=== PATIENT | male | born 1970 | race Caucasian/White ===

== ENCOUNTER 2018-10-09 10:47 | Emergency (ER) | payer OTHER ==
[~2018-10-09] VITALS: Ht 175.3 cm; Wt 83.0 kg
[~2018-10-09 10:47] MED LIST: ACET325 PO; ALBU.083IS IH; ALBU90OI6 INH; ALBU90OI61 INH; AZIT250 PO; FLUSAL1005 IH; FLUSAL5005 INH; HYDACE5 PO; Hydrocodone-Ap1 EA20 PO; LEVFLO500 PO; MONT10T PO; OMEPRAZOLE MAGN20 MG PO; PRED10 PO; PRED20 PO; Ventolin Soln3 ML INH
[2018-10-09 11:42] LABS: BASOPHILS ABSOLUTE AUTO 0.03 K/mm3 (0.00-0.23); BASOPHILS PERCENT AUTO 0 % (0-2); EOSINOPHILS ABSOLUTE AUTO 0.13 K/mm3 (0.00-0.68); EOSINOPHILS PERCENT AUTO 2 % (0-6); Hemoglobin 16.3 g/dL (13.5-17.5); IMMATURE GRAN ABSOLUTE AUTO 0.02 K/mm3 (0.00-0.10); IMMATURE GRAN PERCENT AUTO 0 % (0-1); LYMPHOCYTES ABSOLUTE AUTO 1.01 K/mm3 (0.84-5.20); LYMPHOCYTES PERCENT AUTO 13 % (21-46); MONOCYTES ABSOLUTE AUTO 0.29 K/mm3 (0.16-1.47); MONOCYTES PERCENT AUTO 4 % (4-13); Mean Corpuscular HGB 33.8 pg (26.0-34.0); Mean Corpuscular Volume 100 fL (80-100); NEUTROPHILS ABSOLUTE AUTO 6.42 K/mm3 (1.96-9.15); NEUTROPHILS PERCENT AUTO 81 % (41-73); Platelet Count 212 K/mm3 (150-400); RDW Coefficient Variation 12.7 % (11.7-14.2); RDW Standard Deviation 47.3 fL (35.1-46.3); Red Blood Cell Count 4.82 M/mm3 (4.30-5.90)
[2018-10-09 12:01] LABS: Alanine Aminotransfer (ALT/SGP 41 U/L (12-78); Albumin, Blood 3.7 g/dL (3.4-5.0); Alk Phos 62 U/L (50-136); Anion Gap 8 mmol/L (6-16); Aspartate Aminotrans (AST/SGOT 19 U/L (12-37); Bilirubin, Total 0.2 mg/dL (0.1-1.0); Blood Urea Nitrogen 11 mg/dL (8-24); Bun/Creatinine Ratio 14.6 (12.0-20.0); CO2, Blood 24 mmol/L (21-32); Calcium, Blood 8.3 mg/dL (8.5-10.1); Chloride, Blood 110 mmol/L (98-108); Creatinine, Blood 0.75 mg/dL (0.60-1.20); Globulin, Blood 3.6 g/dL (2.2-4.0); Glomerular Filtration Rate >60 (60-); Glucose, Blood 115 mg/dL (70-99); Potassium, Blood 4.1 mmol/L (3.5-5.5); Sodium, Blood 142 mmol/L (136-145); Total Protein, Blood 7.3 g/dL (6.4-8.2); Troponin I <0.015 ng/mL (0.000-0.040)
== END 2018-10-09 13:45 | disposition home or self-care (01) ==
LOC: ER 10:47
PROVIDERS: Emergency Medicine
DX: R55 Syncope and collapse (principal); R06.00 Dyspnea, unspecified; J45.909 Unspecified asthma, uncomplicated; F41.9 Anxiety disorder, unspecified; F17.200 Nicotine dependence, unspecified, uncomplicated; Z88.8 Allergy status to other drugs, medicaments and biological substances; Z79.899 Other long term (current) drug therapy; Z79.891 Long term (current) use of opiate analgesic
CPT/HCPCS: 36415; 71046; 80053; 84484; 85025; 85379; 93005; 93010; 99285-25

== ENCOUNTER 2021-05-02 04:49 | Inpatient (IN) | payer OTHER ==
[~2021-05-02] VITALS: Ht 177.8 cm; Wt 87.7 kg
[2021-05-02 05:35] LABS: Calcium, Ionized (POC) 1.13 mmol/L (1.10-1.46); Chloride (POC) 106 mmol/L (98-108); Creatinine (POC) 1.3 mg/dL (0.8-1.3); Glucose (ISTAT POC) 230 mg/dL (70-99); Potassium (POC) 5.1 mmol/L (3.5-5.5); Sodium (POC) 141 mmol/L (135-148); Total CO2 (POC) 21 mmol/L (21-32)
[2021-05-02 05:52] LABS: Alanine Aminotransfer (ALT/SGP 58 U/L (12-78); Albumin, Blood 3.3 g/dL (3.4-5.0); Albumin/Globulin Ratio 0.9 (0.8-1.8); Alk Phos 74 U/L (50-136); Anion Gap 13 mmol/L (6-16); Aspartate Aminotrans (AST/SGOT 56 U/L (12-37); Bilirubin, Total 0.2 mg/dL (0.1-1.0); Blood Urea Nitrogen 12 mg/dL (8-24); Bun/Creatinine Ratio 10.3 (12.0-20.0); CO2, Blood 21 mmol/L (21-32); Calcium, Blood 8.1 mg/dL (8.5-10.1); Chloride, Blood 108 mmol/L (98-108); Creatinine, Blood 1.17 mg/dL (0.60-1.20); Ethanol (Alcohol), Blood, Med 73 mg/dL; Globulin, Blood 3.5 g/dL (2.2-4.0); Glomerular Filtration Rate >60 (60-); Glucose, Blood 235 mg/dL (70-99); Potassium, Blood 4.4 mmol/L (3.5-5.5); Sodium, Blood 142 mmol/L (136-145); Total Protein, Blood 6.8 g/dL (6.4-8.2); Troponin I <0.015 ng/mL (0.000-0.040)
[2021-05-02 05:55] LABS: PCO2 Arterial 95.1 mmHg (35-45); PO2 Arterial 354 mmHg (80-100); pH Blood Arterial 7.01 (7.35-7.45)
[2021-05-02 05:56] LABS: BASOPHILS ABSOLUTE AUTO 0.07 K/mm3 (0.00-0.23); BASOPHILS PERCENT AUTO 1 % (0-2); EOSINOPHILS PERCENT AUTO 3 % (0-6); Hemoglobin 15.8 g/dL (13.5-17.5); IMMATURE GRAN ABSOLUTE AUTO 0.37 K/mm3 (0.00-0.10); IMMATURE GRAN PERCENT AUTO 5 % (0-1); LYMPHOCYTES ABSOLUTE AUTO 2.92 K/mm3 (0.84-5.20); LYMPHOCYTES PERCENT AUTO 39 % (21-46); MONOCYTES ABSOLUTE AUTO 0.19 K/mm3 (0.16-1.47); MONOCYTES PERCENT AUTO 3 % (4-13); Mean Corpuscular HGB 33.7 pg (26.0-34.0); Mean Corpuscular HGB Conc 32.2 g/dL (31.5-36.5); Mean Corpuscular Volume 105 fL (80-100); Mean Platelet Volume 9.4 fL (9.1-12.4); NEUTROPHILS PERCENT AUTO 50 % (41-73); Platelet Count 225 K/mm3 (150-400); RDW Coefficient Variation 12.8 % (11.7-14.2); RDW Standard Deviation 49.8 fL (35.1-46.3); Red Blood Cell Count 4.69 M/mm3 (4.30-5.90); White Blood Cell Count 7.55 K/mm3 (4.00-11.30)
[2021-05-02 06:37] LABS: Source, Urine Catheter
[2021-05-02 06:53] LABS: Appearance, Urine Clear (Clear); Bilirubin, Urine Neg (Neg); Blood, Urine 3+ (Neg); Color, Urine Yellow (P-Yellow); Glucose Qualitative, Urine 3+ (Neg); Ketones, Urine Neg (Neg); Leukocyte Esterase, Urine Neg (Neg); Nitrite, Urine Neg (Neg); Protein, Urine 3+ (Neg); Urobilinogen, Urine NORM (Normal)
[2021-05-02 06:54] LABS: SARS-Cov-2 (COVID-19) PCR, MMC NEGATIVE (NEGATIVE)
[2021-05-02 07:10] LABS: U Amphetamine Screen Not Detected; U Barbituate Screen Not Detected; U Benzodiazapine Screen Not Detected; U Cocaine Screen Not Detected; U Methadone Screen Not Detected; U Methamphetamine Screen Not Detected
[2021-05-02 07:11] LABS: U Buprenorphine Screen Not Detected; U Cannabinoids Screen Not Detected; U Opiates Screen DETECTED; U Oxycodone Screen Not Detected; U Phencyclidine Screen Not Detected; U Propoxyphene Screen Not Detected
[2021-05-02 07:13] LABS: Amorphous Light (0-Heavy); Bacteria Few /hpf; Squamous Epithelial Cells Few /hpf (Few)
[2021-05-02 07:17] LABS: International Normalized Ratio 0.98; Prothrombin Time Results 10.6 Sec (9.7-11.5)
--- NOTE | 2021-05-02 07:30 | NUR ---
ASSUMED PT CARE FROM ED RN AT 0605 PT ARRIVED INTUBATED AND SEDATED WITH PROPOFOL AT 30MCG/KG/MIN. PT NON-RESPONSIVE AT THIS TIME; HOWEVER, NOTED TO BE HAVING RHYTHMIC JERKING MOVEMENTS WITH SIMULTANEOUS EYES OPENING/JERKING THAT APPEAR TO BE SEIZURE LIKE ACTIVITY. PUPILS 2MM AND NON-REACTIVE TO LIGHT. PT MEDICATED WITH 2MG OF ATIVAN PER ORDERS. VENT SETTINGS: PC 35/8; FIO2 50%, RR 20, SPO2 >90%. LUNG SOUNDS NOTED TO BE TIGHT/WHEEZY AND COURSE T/O ALL LOBES; NON-PRODUCTIVE COUGH. SINUS TACHYCARDIA WITH HR 110-120'S. BOUNDING PULSES NOTED X4 EXTREMITIES. PT RECEIVING 2L OF NS WO VIA CENTRAL LINE TO RIGHT IJ. ZOSYN AND VANCO ALSO INFUSING. PT RECEIVED AN AMP OF BICARB UPON ARRIVAL D/T CRITICAL ABG RESULTS. BOWEL TONES NOTED TO BE ABSENT; HOWEVER, UPON TURNING PT TO REMOVE LINEN, COPIOUS AMOUNTS OF LIQUID YELLOW/LYNCH STOOL NOTED. THEREFORE, PLACED RECTAL TUBE. 18 FR TEMP RAZO CATHETER ALSO PLACED UPON ARRIVAL WITH MODERATE AMOUNTS OF CLEAR, YELLOW URINE DRAINING TO GRAVITY; TEMP NOTED TO BE 94. DR. ELIZONDO CALLED IN REGARDS TO TEMPERATURE MANAGEMENT WITH ORDERS TO PROVIDE WARM BLANKETS AND SLOWLY REWARM. NO ORDERS FOR COOLING. FAMILY WAITING IN WAITING ROOM WITH UPDATE GIVEN FROM ASSET RECOVERY SPECIALIST. REPORT HANDED OFF TO CONSTANTINO GONZALEZ.
[2021-05-02] MEDS ORDERED: FLUT1DIS2 INH (07:59)
[2021-05-02] MEDS ORDERED: ALBU90OI6 INH (08:00)
--- NOTE | 2021-05-02 08:42 | NUR ---
ASSUMED CARE REPORT RECEIVED FROM CONSTANTINO GARCÍA. PT INTUBATED, HAVING RHYTHMIC MUCLE SPASMS THAT APPEAR TO BE SEIZURE LIKE ACTIVITY. SEDATION STARTED AND ATIVAN GIVEN AND SPASMING EASED. PT STILL HAS SOME SPASMS WITH STIMULUS WHERE HIS BODY SPASMS AND HIS EYES BURST OPEN BRIEFLY, BUT EYE OPENING DOES NOT APPEAR PURPOSEFUL. LUNGS ARE VERY TIGHT AND WHEEZY. SPOKE WITH RT ANGELES AND SHE GAVE BREATHING TREATMENT. BOWEL TONES VERY HYPOACTIVE, RECTAL TUBE WITH SMALL AMT OF LIQUID STOOL IN THE TUBING. RAZO DRAINING. PT IS HYPOTHERMIC AT 94.2F. WARM BLANKETS APPLIED. SPOKE WITH DR. TAPIA AND PROVIDED UPDATE. RECEIVED ORDER TO STOP LR AND CONTINUE WITH JUST WARM BLANKETS FOR NOW. SPOKE WITH PT'S AND DAUGHTER AND PROVIDED UPDATE ON PT STATUS WELL OBTAINED PT HISTORY. PT'S TOLD CONSTANTINO ALLEN THAT SHE DID NOT DO CPR WHILE WAITING FOR AN AMBULANCE. CONTINUING TO MONITOR AND PROVIDE FAMILY WITH UPDATES THEY DON'T WANT TO COME BACK TO THE ROOM RIGHT NOW AND SEE PT IN THIS STATE.
[2021-05-02] MEDS ORDERED: Norco 10-325 T1 EACH PO (10:46)
[2021-05-02] MEDS ORDERED: OMEP20ER PO (10:50)
[2021-05-02] MEDS ORDERED: ATOR10 PO (10:50)
[2021-05-02] MEDS ORDERED: FLUT1DIS8 INH (10:51)
[2021-05-02] MEDS ORDERED: GABA300 PO (10:52)
[2021-05-02] MEDS ORDERED: DEPO-TESTO200 MG/1 M IM (10:53)
--- NOTE | 2021-05-02 11:56 | NUR ---
REASSESSMENT PT REMAINS INTUBATED AND SEDATED. STILL HAVING PERIODIC FULL BODY MUSCLE JERK, BUT MUCH LESS THAN WHEN HE WAS NOT SEDATED. IV KEPPRA STARTED PER DR. TAPIA. LUNGS ARE STILL TIGHT, BUT HAVE IMPROVED AIR MOVEMENT THAN THIS MORNING. SMALL TO MODERATE AMT OF CLEAR TO WHITE SPUTUM BEING SUCTIONED. REMAINS ST IN THE LOW 100S. BP STABLE. BOWEL TONES REMAIN HYPOACTIVE. RAZO DRAINING CL YELLOW URINE. DR. TAPIA SPOKE WITH PT'S ANDRAE AND PROVIDING UPDATE. PT'S ANDRAE CAME BACK AND SAW PT. PT'S MED LIST UPDATED FROM MED LIST FROM PHARMACY. CONTINUING TO MONITOR.
[2021-05-02 13:10] LABS: Base Excess Venous -5.1 mmol/L; Bicarbonate Venous 20.5 mmol/L (24.0-30.0); PCO2 Venous 40.5 mmHg (38-42); PO2 Venous 99.5 mmHg (38-42); pH Blood Venous 7.32 (7.34-7.37)
--- NOTE | 2021-05-02 16:11 | NUR ---
PT'S WEDDING BAND SENT HOME WITH HIS .
--- NOTE | 2021-05-02 16:58 | NUR ---
SHIFT SUMMARY PT'S LUNGS WERE SOUNDING BETTER THROUGHOUT THE SHIFT THEN THIS EVENING THEY HAVE RETURNED TO BEING QUITE TIGHT AND PT HAS GOT TACHYPNEIC. HE WAS HAVING VERY RHYTHMIC EYE OPENING AND CLOSING THAT APPEARED SEIZURE LIKE AND PT WAS NOT BREATHIGN WELLW ITH THE VENT. SEDATION INCREASED, PRN ATIVANA ND FENTANYL GIVEN WITH OUT IMPROVEMENT. DR. TAPIA TO THE BEDSIDE AND ORDERED FOR 4MG ATIVAN TO BE GIVEN AND THE RHYTHMIC EYE OPENING STOPPED AFTER THAT BUT PT IS STILL TACHYPNEIC AND LUNG SOUNDS ARE TIGHT. WAITING FOR PHENYTOIN TO ARRIVE FROM PHARMACY. PT HAS COOLING BLANKET ON AND ICE PACKS AROUND BODY TO KEEP PT AFEBRILE BODY TEMPERATURE STARTED TO CLIMB THIS AFTERNOON. ST IN LOW 100S STILL AND BP REMAINS STABLE. GOOD URINE OUTPUT. SCANT OUTPUT FROM RECTAL TUBE. BOWEL TONES HYPOACTIVE.PT'S DID COME TO THE BEDSIDE THIS EVENING. ALL QUESTIONS ANSWERED AND UPDATE GIVEN. CONTINUING TO MONITOR.
--- NOTE | 2021-05-02 18:26 | NUR ---
HYPOTENSION AFTER PHENYTOIN STARTED PT'S SBP DROPPED TO THE 80S, MAP IN THE 50S. PT'S RESPIRATORY RATE FINALLY SLOWED AND EVENED OUT WHEN THE PHENYTOIN STARTED WELL. PROPOFOL DECREASED BUT BP REMAINED LOW. DR. TAPIA NOTIFIED AND ORDER RECEIVED TO START LEVOPHED. STARTED AT 4 MCG/MIN AND BP RESPONDED RIGHT AWAY. CONTINUE TO MONITOR AND TITRATE LEVOPHED NEEDED.
--- NOTE | 2021-05-02 22:15 | NUR ---
ASSUMED PT CARE FROM CONSTANTINO GONZALEZ AT 1915 PT REMAINS INTUBATED AND SEDATED. PROPOFOL AT 50MCG/KG/MIN VIA CENTRAL LINE TO RIGHT IJ. LEVOPHED AT 4MCG/MIN WITH SBP 130'S; THEREFORE, PLACED ON STANDBY. VENT SETTINGS: AC/PC 22/5; FIO2 30%, RR 20, SPO2 >90%. PT HAS OCCASIONAL, NON-PRODUCTIVE COUGH. LUNG SOUNDS ARE TIGHT WITH WHEEZING NOTED DURING COUGHING EPISODES; HOWEVER, AFTER BEING MEDICATED WITH ADJUNCT SEDATION LUNG SOUNDS BECOME CLEAR/DIMINISHED T/O. PT IS UNRESPONSIVE WITH NO PURPOSEFUL MOVEMENTS OR REFLEXES NOTED. NEGATIVE DOLLS EYES. RESTRAINTS REMOVED AT 2129. SINUS TACHYCARDIA WITH HR 100-110'S. ABDOMEN IS MODERATELY DISTENDED AND FIRM WITH HYPOACTIVE TONES; RECTAL TUBE IN PLACE DRAINING MINIMAL AMOUNTS OF YELLOW/LYNCH STOOL. OG HOOKED TO LIS WITH BROWN OUTPUT NOTED. TEMP RAZO IS PATENT AND DRAINING DARK MILI COLORED URINE TO GRAVITY; TEMP 98.6 WITH GOAL TO MAINTAIN TEMP AT 36.5 CELSIUS PER REPORT. COOLING BLANKETS AND ICE PACKS REMAIN ON PT AT THIS TIME. SEE SHIFT SUMMARY FOR FURTHER DETAILS.
--- NOTE | 2021-05-03 01:36 | NUR ---
BROTHER ARRIVED FROM [place] AT BEDSIDE NOW ASKING APPROPRIATE QUESTIONS REGARDING OUTCOMES IN RELATION TO SITUATION. EDUCATED REGARDING NEURO STATUS AND UPCOMING EEG TO FURTHER DETERMINE NEURO OUTCOMES. BROTHER ABLE TO VERBALIZE UNDERSTANDING. HE REMAINS VERY CALM AND APPROPRIATE. WILL REMAIN AVAILABLE FOR FURTHER QUESTIONS AND SUPPORT.
[2021-05-03 04:24] LABS: BASOPHILS ABSOLUTE AUTO 0.02 K/mm3 (0.00-0.23); BASOPHILS PERCENT AUTO 0 % (0-2); EOSINOPHILS PERCENT AUTO 0 % (0-6); Hematocrit 43.2 % (37.0-53.0); Hemoglobin 14.6 g/dL (13.5-17.5); IMMATURE GRAN ABSOLUTE AUTO 0.06 K/mm3 (0.00-0.10); IMMATURE GRAN PERCENT AUTO 0 % (0-1); LYMPHOCYTES ABSOLUTE AUTO 0.59 K/mm3 (0.84-5.20); LYMPHOCYTES PERCENT AUTO 4 % (21-46); MONOCYTES ABSOLUTE AUTO 0.57 K/mm3 (0.16-1.47); MONOCYTES PERCENT AUTO 4 % (4-13); Mean Corpuscular HGB Conc 33.8 g/dL (31.5-36.5); Mean Corpuscular Volume 101 fL (80-100); Mean Platelet Volume 9.7 fL (9.1-12.4); NEUTROPHILS PERCENT AUTO 91 % (41-73); Platelet Count 179 K/mm3 (150-400); RDW Coefficient Variation 13.5 % (11.7-14.2); RDW Standard Deviation 50.4 fL (35.1-46.3); Red Blood Cell Count 4.29 M/mm3 (4.30-5.90); White Blood Cell Count 14.24 K/mm3 (4.00-11.30)
[2021-05-03 04:46] LABS: Alanine Aminotransfer (ALT/SGP 48 U/L (12-78); Albumin, Blood 3.3 g/dL (3.4-5.0); Albumin/Globulin Ratio 1.1 (0.8-1.8); Alk Phos 59 U/L (50-136); Anion Gap 8 mmol/L (6-16); Aspartate Aminotrans (AST/SGOT 49 U/L (12-37); Bilirubin, Total 0.2 mg/dL (0.1-1.0); Blood Urea Nitrogen 17 mg/dL (8-24); Bun/Creatinine Ratio 21.5 (12.0-20.0); CO2, Blood 23 mmol/L (21-32); Calcium, Blood 7.6 mg/dL (8.5-10.1); Chloride, Blood 112 mmol/L (98-108); Creatinine, Blood 0.79 mg/dL (0.60-1.20); Globulin, Blood 3.1 g/dL (2.2-4.0); Glomerular Filtration Rate >60 (60-); Glucose, Blood 199 mg/dL (70-99); Potassium, Blood 3.6 mmol/L (3.5-5.5); Sodium, Blood 143 mmol/L (136-145); Total Protein, Blood 6.4 g/dL (6.4-8.2)
--- NOTE | 2021-05-03 05:05 | NUR ---
END OF SHIFT SUMMARY NO SIGNIFICANT CHANGES THIS SHIFT. VENT SETTINGS REMAIN UNCHANGED. PROPOFOL REMAINS AT 50MCG/KG/MIN. NO SEDATION VACATION PERFORMED D/T RESP RATE INCREASING TO 40-50'S WHEN PROPOFOL WAS OFF FOR 2 MINUTES DURING LAB DRAW. PT CONTINUES TO HAVE RHYTHMIC EYE MOVEMENTS AND OCCASIONAL JERKING MOVEMENTS. MEDICATED WITH ATIVAN AND FENTANYL FOR ADJUNCT SEDATION. NO PURPOSEFUL MOVEMENTS OR REFLEXES NOTED; THEREFORE, PT REMAINS OUT OF RESTRAINTS. NEGATIVE DOLLS EYES. NO POSTURING NOTED. LUNG SOUNDS ARE CLEAR T/O DIM TO BASES WHEN RELAXED; HOWEVER, OCCASIONAL COUGHING EPISODES AND/OR TACHYPNEA CAUSES TIGHT WHEEZING NOTED T/O. SINUS TACHYCARDIA WITH HR 100-110'S. LEVOPHED HAS BEEN ON AND OFF T/O SHIFT; CURRENTLY OFF. TEMPERATURE HAS BEEN AROUND 97 MOST OF SHIFT WITH COOLING BLANKET IN PLACE. SKIN IS VERY DIAPHORETIC WITH FOUL ORAL ODOR DESPITE ORAL CARES. RECTAL TUBE PATENT AND DRAINING TO GRAVITY. WILL CONTINUE TO MONITOR UNTIL REPORT IS HANDED OFF TO ONCOMING RN.
--- NOTE | 2021-05-03 12:04 | NUR ---
REASSESSMENT PT CONTINUES TO BE SEDATED AND INTUBATED. SLUGGISH PUPILLARY REFLEX, WEAK GAG THAT IS DIFFICULT TO ASSESS BECAUSE PT GOES INTO A COUGHING FIT WHEN TRYING TO STIMULATE IT. LUNGS ARE TIGHT, BUT MOVING MORE AIR THAT YESTERDAY. ST INT HE LOW 100S. BPS TABLE SO ABLE TO TITRATE LEVOPHED OFF THIS MORNING. HYPOACTIVE BOWEL TONES, RECTAL TUBE WITH MININMAL OUTPUT. PT'S BROTHER CAME IN TODAY AND WAS UPDATED. YOUTUBER IN THE ROOM SETTING UP. CONTINUE TO MONITOR.
--- NOTE | 2021-05-03 17:07 | NUR ---
SHIFT SUMMARY PT REMAINS INTUBATED AND SEDATED THIS SHIFT. SEDATION WAS TURNED OFF DURING THE EEG AND PT HAD MINIMAL RESPONSIVENESS DURING THAT TIME. WITH PAINFUL STIMULI PT SHOWED DECERBRATE TYPE POSTURING ON THE R SIDE. SEDATION TURNED BACK ON PER DR. TAPIA. WEAK GAG THAT IS DIFFICULT TO STIMULATE, PUPILS REMAIN SLUGGISH, 2MM. LUNGS DIM, TIGHT. ST, BP STABLE. DARK YELLOW URINE IN RAZO. SCANT OUTPUT FROM RECTAL TUBE. MULTIPLE FAMILY MEMBERS AND FRIENDS IN TO VISIT THROUGHOUT THE DAY. CONTINUING TO MONITOR.
--- NOTE | 2021-05-03 19:40 | NUR ---
ASSUMED PT CARE FROM CONSTANTINO GONZALEZ AT 1915 PT REMAINS INTUBATED AND SEDATED. PROPOFOL AT 40MCG/KG/MIN. VENT REMAINS AC/PC 22/5; FIO2 30%, RR 20, SPO2 >90%. PT IS NONRESPONSIVE. NEGATIVE DOLLS EYES. PUPILS 2MM A NON-REACTIVE TO LIGHT. OCCASIONAL COUGHING EPISODES WITH RR INCREASING TO 40-50'S. POSITIVE GAG. NO POSTURING NOTED. NO REFLEXES NOTED WHEN STIMULATING PLANTAR REFLEX. OG TO LIS WITH DARK BROWN OUTPUT NOTED. TEMP RAZO IS PATENT AND DRAINING GREEN/YELLOW URINE TO GRAVITY; TEMP 97.7. RECTAL TUBE REMAINS IN PLACE WITH MINIMAL OUTPUT. SINUS TACHYCARDIA WITH HR 100-110'S; BP'S STABLE, SEE FLOWSHEET. FAMILY AT BEDSIDE UPON ASSUMPTION OF CARE IN WHICH THEY WERE GIVEN EEG PER EEG REPORT. HAD QUESTIONS ABOUT SEDATION AND WHY IT WAS PLACED BACK ON; INFORMED , PER WHAT I RECEIVED IN REPORT, THAT IT WAS TO KEEP PT COMFORTABLE IN CASE HE WAS TO HAVE SEIZURE LIKE ACTIVITY DURING THE NIGHT. ASKED TO SPEAK TO OFF GOING RN TO CLARIFY IN WHICH SHE WAS GIVEN THE SAME RESPONSE. HAD QUESTIONS ABOUT CONTINUED JERKING MOVEMENTS DESPITE EEG SHOWING NO SEIZURE LIKE ACTIVITY; EDUCATED REGARDING MUSCLE JERKING DOESN'T ALWAYS MEAN BRAIN ACTIVITY IS PRESENT. UPDATED ON PLAN OF TURNING OFF SEDATION TOMORROW AND SEEING IF THERE IS ANY CHANGE IN PT'S NEURO STATUS. AGREED WITH PLAN OF CARE AND ASKED THAT SHE BE HERE WHEN THAT TAKES PLACE. INFORMED THAT WE WOULD TRY OUR BEST TO MAKE THAT HAPPEN, BUT ALSO ASKED THAT SHE INFORM OTHER FRIENDS AND FAMILY THAT ONLY TWO PEOPLE WOULD BE ALLOWED BACK DURING THAT TIME. DEMONSTRATED UNDERSTANDING AND BOTH HER AND HER DAUGHTER LEFT SHORTLY THEREAFTER.
[2021-05-04 03:46] LABS: BASOPHILS ABSOLUTE AUTO 0.02 K/mm3 (0.00-0.23); BASOPHILS PERCENT AUTO 0 % (0-2); EOSINOPHILS PERCENT AUTO 0 % (0-6); Hematocrit 43.1 % (37.0-53.0); Hemoglobin 14.3 g/dL (13.5-17.5); IMMATURE GRAN ABSOLUTE AUTO 0.08 K/mm3 (0.00-0.10); IMMATURE GRAN PERCENT AUTO 1 % (0-1); LYMPHOCYTES ABSOLUTE AUTO 0.77 K/mm3 (0.84-5.20); LYMPHOCYTES PERCENT AUTO 5 % (21-46); MONOCYTES ABSOLUTE AUTO 0.78 K/mm3 (0.16-1.47); MONOCYTES PERCENT AUTO 5 % (4-13); Mean Corpuscular HGB 33.8 pg (26.0-34.0); Mean Corpuscular HGB Conc 33.2 g/dL (31.5-36.5); Mean Corpuscular Volume 102 fL (80-100); Mean Platelet Volume 9.7 fL (9.1-12.4); NEUTROPHILS ABSOLUTE AUTO 13.88 K/mm3 (1.96-9.15); NEUTROPHILS PERCENT AUTO 89 % (41-73); Platelet Count 178 K/mm3 (150-400); RDW Standard Deviation 52.9 fL (35.1-46.3); Red Blood Cell Count 4.23 M/mm3 (4.30-5.90); White Blood Cell Count 15.53 K/mm3 (4.00-11.30)
[2021-05-04 04:01] LABS: Anion Gap 4 mmol/L (6-16); Blood Urea Nitrogen 18 mg/dL (8-24); Bun/Creatinine Ratio 25.8 (12.0-20.0); CO2, Blood 27 mmol/L (21-32); Calcium, Blood 7.7 mg/dL (8.5-10.1); Chloride, Blood 111 mmol/L (98-108); Glomerular Filtration Rate >60 (60-); Glucose, Blood 133 mg/dL (70-99); Potassium, Blood 3.7 mmol/L (3.5-5.5); Sodium, Blood 142 mmol/L (136-145)
--- NOTE | 2021-05-04 06:01 | NUR ---
END OF SHIFT SUMMARY NO SIGNIFICANT CHANGES THIS SHIFT. VENT SETTINGS REMAIN UNCHANGED. PROPOFOL REMAINS AT 40MCG/KG/MIN. UNRESPONSIVE WITH NO PURPOSEFUL MOVEMENTS; THEREFORE, PT REMAINS OUT OF RESTRAINTS. PUPILS 3MM AND VERY SLUGGISH REACTION TO LIGHT. NEGATIVE DOLLS EYES. NEGATIVE PLANTAR REFLEX. NO POSTURING NOTED THIS SHIFT. PT REMAINS VERY DIAPHORETIC AND FLUSHED. TEMP REMAINS 97-98 PER TEMP RAZO PROBE. GOOSEBUMPS NOTED TO CHEST AND ARMS, BUT NO SHIVERING. OCCASIONAL PERIODS OF TACHYPNEA LABORED/SHALLOW BREATHING; RATE NOTED TO INCREASE TO 40-50. DURING THIS TIME LUNGS BECOME VERY TIGHT AND WHEEZY WITH MINIMAL AIR MOVEMENT NOTED T/O. AFTER PT RECOVERS LUNG SOUNDS TEND TO RECOVER BACK TO CLEAR AND DIMINISHED TO BASES. NSR TO SINUS TACH; HR 90-110'S, BP'S STABLE. NO JERKING/RHYTHMIC MOVEMENTS NOTED THIS SHIFT. REMOVED RECTAL TUBE THIS MORNING D/T NO OUTPUT THIS SHIFT. CT CALLED TO ARRANGE TIME OF TRANSPORT DOWN TO IMAGING; HOWEVER, [employer] SUPER[employer]OR WAS REQUESTING TO GO AROUND 0600 IN WHICH RT WOULD NOT BE AVAILABLE AT THIS TIME SECONDARY TO THEIR SHIFT REPORT. ARRANGED THAT TRANSPORT TO CT MAY BE BETTER AFTER NURSES GIVE THEIR MORNING REPORT IN WHICH [employer] SUPERVISOR STATED HE WOULD CALL BACK AND CONFIRM TIME AFTER 0700. WILL CONTINUE TO MONITOR UNTIL REPORT IS HANDED OFF TO ONCOMING RN.
--- NOTE | 2021-05-04 10:03 | NUR ---
SEDATION VACATION SEDATION TURNED OFF AFTER PT RETURNED FROM HEAD CT AND DR. SWANN ASSESSED PT AT THE BEDSIDE. PT'S RESPIRATORY RATE WENT UP TO THE 50S AND VOLUMES DECREASED. DR. SWANN SWITCHED PT ON THE VENTILATOR TO ASSESS INTRINSIC RATE AND RATE WAS IN THE 60S WITH VOLUMES ONLY ABOUT 150ML. DR. SWANN GAVE ORDER TO TURN SEDTAION BACK ON. HEAD CT RESULTS CAME BACK SHOWING CEREBRAL EDEMA, DR. SWANN AWARE. PT'S NOTIFIED TO COME IN AND ASKED HER TO HAVE PT'S DAUGHTER AND BROTHER COME WELL IN ORDER TO TALK WITH THE DOCTOR. PNTB NOTIFIED OF HEAD CT RESULTS.
--- NOTE | 2021-05-04 12:17 | NUR ---
REASSESSMENT PT REMAINS INTUBATED AND SEDATED. HE CONTINUES TO HAVE NO PURPOSEFUL MOVEMENT. ATTEMPTED TO TEST GAG REFLEX AND PT STARTED HAVING A COUGHING FIT. STILL WITH DECEREBRATE TYPE POSTURING OF HIS ARMS WITH PAINFUL STIMULI. LUNGS ARE CLEAR, BUT TIGHT. SR INTHE 90S, BP STABLE. RAZO WITH DARK, TEA COLORED URINE. DR. SWANN AND THIS RN HAD FAMILY MEETING TO DISCUSS HEAD CT RESULTS. PT'S , LYNSEY, REQUESTED A NEUROLOGY CONSULT SO DR. SWANN SPOKE TO WHO SAID HE CAN SEE PT ABOUT 1830OR 193 TONIGHT. PT'S FAMILY IS AWARE OF WHEN WILL BE HERE. AFTER FAMILY MEETING, PT'S HAD SEVERAL QUESTIONS ABOUT CARE AND PROGNOSIS. MORE THAN 20 MINTUES SPENT DISCUSSING THIS WITH THEM. PT'S KEEPS SAYING SHE DOESN'T WANT TO GIVE UP AND WAS ASKING ABOUT BRAIN SURGERY EVEN. PATHOPYSIOLOGY OF ANOXIC BRAIN INJURIES EXPLAINED EXTENSIVELY TO HER. PT'S ASKED ABOUT TRANSFERRING PT AFTER SEES HIM. EXPLAINED THAT WE HAVE NO PROBLEM TRYING, BUT ALSO EXPLAINED THAT INSURANCE MAY NOT PAY FOR IT, THAT A DOCTORHAS TO ACCEPT THE PATIENT AND THAT THERE HAS TO BE A BED AVAILABLE, WHICH HAS BEEN VERY DIFFICULT TO FIND LATELY. WILL REASSESS THEIR DESIRE FOR TRANSFER AFTER NEUROLOGY CONSULT.
--- NOTE | 2021-05-04 17:09 | NUR ---
SHIFT SUMMARY PT REMAINS INTUBATED AND SEDATED. STILL WITH ONLY SLIGHT PUPILLARY RELFEX. DECEREBRATE TYPE POSTURING WITH ORAL CARE. LUNGS CLEAR. SR, BP STABLE. TEMPERATURE 99-100.0F THROUGHOUT THE SHIFT, ICE PACKS IN PLACE. RAZO WITH DARK TEA/GREEN URINE. MULTIPLE CONVERSATIONS HAD WITH PT'S THROUGHOUT THE SHIFT REGARDING PT'S CARE AND PROGNOSIS. CONTINUING TO PROVIDE THEM WITH SUPPORT AND EDUCATION.
--- NOTE | 2021-05-04 19:00 | NUR ---
ASSUMED CARE ASSUMED CARE OF PATIENT. REMAINS INTUBATED- AC 20, PC 22, PEEP 5, FIO2 30%. RR 20s. SEDATED WITH PROPOFOL AT 40MCG/KG/MIN. PT IS UNRESPONSIVE. DECEREBRATE POSTURING NOTED WITH NOXIOUS STIMULI. NO SPONTANEOUS MOVEMENT. MONITOR SHOWS NSR, RATE 80s. BP STABLE. TEMP 99.5F PER RAZO TEMP PROBE. OG TO LIS WITH SCANT REDDISH-BROWN DRAINAGE. RAZO PATENT, DRAINING DARK TEA-COLORED URINE. RIJ LINE PATENT, DRSG C/D/I. SEE SHIFT ASSESSMENT.
--- NOTE | 2021-05-04 19:55 | NUR ---
SEDATION SEDATION TITRATED OFF FOR TO ASSESS PATIENT. PROPOFOL WAS OFF FROM 1934 TO 1954. RR INCREASED TO 40s-50s DURING THAT TIME. NO SPONTANEOUS/PURPOSEFUL MOVEMENT NOTED. CONTINUES WITH DECEREBRATE POSTURING WITH NOXIOUS STIMULI. SEDATION RESTARTED AT 40MCG/KG/MIN AT THIS TIME.
--- NOTE | 2021-05-04 20:30 | NUR ---
FAMILY UPDATE/TREATMENT PLAN MET WITH FAMILY- PLAN IS TO CONTINUE CURRENT TREATMENT FOR A TOTAL OF SEVEN DAYS AND THEN REASSESS.
[2021-05-05 04:30] LABS: BASOPHILS ABSOLUTE AUTO 0.02 K/mm3 (0.00-0.23); BASOPHILS PERCENT AUTO 0 % (0-2); EOSINOPHILS PERCENT AUTO 0 % (0-6); Hematocrit 42.2 % (37.0-53.0); Hemoglobin 13.9 g/dL (13.5-17.5); IMMATURE GRAN ABSOLUTE AUTO 0.11 K/mm3 (0.00-0.10); IMMATURE GRAN PERCENT AUTO 1 % (0-1); LYMPHOCYTES ABSOLUTE AUTO 1.32 K/mm3 (0.84-5.20); LYMPHOCYTES PERCENT AUTO 11 % (21-46); MONOCYTES ABSOLUTE AUTO 0.76 K/mm3 (0.16-1.47); MONOCYTES PERCENT AUTO 6 % (4-13); Mean Corpuscular HGB 33.8 pg (26.0-34.0); Mean Corpuscular HGB Conc 32.9 g/dL (31.5-36.5); Mean Corpuscular Volume 103 fL (80-100); Mean Platelet Volume 9.3 fL (9.1-12.4); NEUTROPHILS ABSOLUTE AUTO 9.68 K/mm3 (1.96-9.15); NEUTROPHILS PERCENT AUTO 81 % (41-73); Platelet Count 173 K/mm3 (150-400); RDW Coefficient Variation 13.8 % (11.7-14.2); RDW Standard Deviation 52.7 fL (35.1-46.3); Red Blood Cell Count 4.11 M/mm3 (4.30-5.90); White Blood Cell Count 11.89 K/mm3 (4.00-11.30)
[2021-05-05 04:47] LABS: Anion Gap 5 mmol/L (6-16); Blood Urea Nitrogen 20 mg/dL (8-24); Bun/Creatinine Ratio 31.5 (12.0-20.0); CO2, Blood 24 mmol/L (21-32); Chloride, Blood 112 mmol/L (98-108); Creatinine, Blood 0.63 mg/dL (0.60-1.20); Glomerular Filtration Rate >60 (60-); Glucose, Blood 109 mg/dL (70-99); Potassium, Blood 3.7 mmol/L (3.5-5.5); Sodium, Blood 141 mmol/L (136-145)
--- NOTE | 2021-05-05 06:21 | NUR ---
SHIFT SUMMARY NO ACUTE CHANGES. REMAINS INTUBATED WITH SAME VENT SETTINGS. RR 20s-50s DURING SHIFT. SEDATED WITH PROPOFOL AT 40MCG/KG/MIN. REMAINS UNRESPONSIVE. NO SPONTANEOUS OR PURPOSEFUL MOVEMENTS NOTED. DECEREBRATE POSTURING NOTED IN UPPER EXTREMITIES WITH NOXIOUS STIMULI. MEDICATED WITH FENTANYL 50MCG IV X 1 DOSE FOR INCREASED TACHYPNEA. NO SEIZURE ACTIVITY NOTED. MONITOR SHOWS SR-ST, RATE 90s-100s. BP STABLE. TMAX 99.6F. OG TO LIS- 150CC REDDISH-BROWN DRAINAGE WITH SOME COFFEE GROUND MATERIAL. RAZO PATENT AND DRAINING DARK GREENISH-BROWN URINE. RIJ PATENT. WILL REPORT TO ONCOMING RN WHEN AVAILABLE.
--- NOTE | 2021-05-05 08:47 | NUR ---
ASSUMED CARE BEDSIDE REPORT FROM JOEL MEEKS AT 0700. PT INTUBATED AND SEDATED. VENT SETTINGS AC/PC 20/22/5/30%. PROPOFOL GTT AT 40 MCG/KG/MIN. PT c NO COUGH/GAG/SWALLOW REFLEX. NO CORNEAL REFLEX. PUPILS 4 MM, NON REACTIVE. DECEREBRATE POSTURING c ORAL CARE. DOES NOT WITHDRAW EXTREMITIES TO PAINFUL STIMULI. NO SEIZURE ACTIVITY NOTED. RR 25-35. LUNGS COARSE THROUGHOUT. THIN CLEAR SECRETIONS. SR, RATE 100 ON MONITOR. BP STABLE. PT FLUSHED, WARM. TEMP 99.0. ABD ROUND, DISTENDED. BT X 4. OGT TO LIS, BROWN/COFFEE GROUND EMESIS OUT. RAZO PATENT, DRAINING MILI URINE TO GRAVITY. WILL CONTINUE TO MONITOR.
--- NOTE | 2021-05-05 14:41 | NUR ---
Met pt. still on vent prayed for him
--- NOTE | 2021-05-05 17:07 | NUR ---
SHIFT SUMMARY PT REMAINS INTUBATED AND SEDATED. VENT SETTINGS UNCHANGED, AC/PC 20/22/30%/5. LUNGS COARSE, SPUTUM SENT TO LAB. PROPOFOL GTT AT 40 MCG/KG/MIN. NEURO EXAM UNCHANGED, ONLY NEURO RESPONSE DECEREBRATE TO ORAL CARE. TUBE FEEDS STARTED THIS SHIFT, AT GOAL OF 20 ML/HR c 30 ML FLUSHES q4 HR. RAZO PATENT, DRAINING TEA COLORED URINE TO GRAVITY. VSS. FAMILY AT BEDSIDE THIS AFTERNOON. QUESTIONS ANSWERED. WILL CONTINUE TO MONITOR UNTIL REPORT TO ONCOMING NURSE.
--- NOTE | 2021-05-05 19:00 | NUR ---
ASSUMED CARE ASSUMED CARE OF PATIENT. REMAINS INTUBATED- AC 20, PC 22, PEEP 5, FIO2 30%. RR MID-30s TO 40s. SEDATED WITH PROPOFOL AT 40MCG/KG/MIN. PT IS UNREPSONSIVE. NO SPONTANEOUS/PURPOSEFUL MOVEMENT. NO COUGH/GAG/SWALLOW. NO WITHDRAWAL TO NOXIOUS STIMULI. PUPILS NON-REACTIVE. LEFT PUPIL IS SLIGHLTY BIGGER THAN RIGHT. NO CORNEAL REFLEX NOTED. NO POSTURING OR SEIZURE ACTIVITY NOTED AT THIS TIME. MONITOR SHOWS SR, RATE 80s. SBP 150s AT THIS TIME. TEMP 100.2F. OG WITH VITAL HIGH PROTEIN AT GOAL RATE OF 20CC/HR. RAZO PATENT AND DRAINING TO GRAVITY. RIJ LINE PATENT. SEE SHIFT ASSESSMENT FOR FULL ASSESSMENT.
--- NOTE | 2021-05-06 00:25 | NUR ---
NEURO CHANGE LEFT PUPIL IS NOW 7MM AND RIGHT IS 5MM. BOTH ARE UNRESPONSIVE. NO OTHER NEURO CHANGES NOTED FROM PREVIOUS ASSESSMENT. SBP 140s-150s. DR. SWANN NOTIFIED OF PUPIL CHANGE- NO NEW ORDERS.
[2021-05-06 04:39] LABS: Anion Gap 5 mmol/L (6-16); Blood Urea Nitrogen 19 mg/dL (8-24); Bun/Creatinine Ratio 32.6 (12.0-20.0); CO2, Blood 26 mmol/L (21-32); Calcium, Blood 8.5 mg/dL (8.5-10.1); Chloride, Blood 109 mmol/L (98-108); Creatinine, Blood 0.58 mg/dL (0.60-1.20); Glomerular Filtration Rate >60 (60-); Glucose, Blood 126 mg/dL (70-99); Magnesium, Blood 2.4 mg/dL (1.6-2.4); Phosphorus, Blood 2.7 mg/dL (2.5-4.9); Potassium, Blood 3.6 mmol/L (3.5-5.5); Sodium, Blood 140 mmol/L (136-145)
--- NOTE | 2021-05-06 06:13 | NUR ---
SHIFT SUMMARY REMAINS INTUBATED- SAME VENT SETTINGS. SEDATED WITH PROPOFOL BETWEEN 40-50MCG/KG/MIN FOR VENT TOLERANCE- INFUSING NOW AT 50MCG/KG/MIN. ALSO MEDICATED WITH FENTANYL 50MCG IV X 4 DOSES SEDATION ADJUNCT. NO SPONTANEOUS/PURPOSEFUL MOVEMENT. DECEREBRATE POSTURING NOTED AT TIMES WITH NOXIOUS STIMULI, ALTHOUGH HAPPENING LESS OFTEN THIS AM. PUPILS STILL UNEQUAL- LEFT PUPIL 7-8MM, RIGHT PUPIL 5-6MM. NO COUGH/GAG/SWALLOW. NO SEIZURE ACTIVITY NOTED DURING SHIFT. MONITOR SHOWS NSR, RATE 60s-70s. HYPERTENSIVE AT TIMES WITH SBP 150s-170s. MEDICATED WITH LABETALOL 20MG IV X 3 DOSES TO MAINTAIN SBP <160. TMAX 100.2F. OG WITH VITAL HIGH PROTEIN AT GOAL RATE OF 20CC/HR WITH 30CC H20 FLUSH Q4H. RESIDUALS <10CC. RAZO PATENT AND DRAINING TO GRAVITY. WILL REPORT TO ONCOMING RN WHEN AVAILABLE.
--- NOTE | 2021-05-06 09:37 | NUR ---
AM NOTE... ASSUMED CARE OF PT AT 0700. PT IS ITUBATED AND SEDATED, VENT SETTINGS ARE AC/PC: 20/22/5/30% WITH A 7.0 ET TUBE 25 AT THE TEETH. PT'S VS: NSR IN THE 70'S, BP 150'S-160'S SYSTOLIC, PT'S O2 SATS >95% RR IN THE 30'S PT WAS BREATHING OVER THE VENT. THIS RN NOTED A LARGE AMOUNT OF CLEAR AND WHITE CREAMY ORAL SECRETIONS ON THE PT'S SHOULDER, THIS RN WAS CLEANING THIS UP THE PT'S HR STARTED TO GO DOWN TO THE MID 50'S, BP STARTED TO INCREASE WITH SBP IN THE 170'S-180'S AND HIS O2 SATS DROPPED DOWN TO 81%, THE PT'S FIO2 WAS INCREASED TO 100% DR. WILKINS AT THE BEDSIDE DURING THIS TIME, PT'S PEEP WAS INCREASED FROM 5 TO 8, SLOWLY THE PT'S O2 SATS STARTED TO INCREASE BACK UP TO >90%. L/S SLIGHTLY COARSE ON THE RIGHT AND VERY DIM ON THE LEFT. BT VERY HYPOACTIVE, ABD HAS MILD DISTENTION. PT'S RAZO IS PATENT AND DRAINING TO GRAVITY. PT'S PUPILS ARE NON-EQUAL WITH THE LEFT AT 6MM AND THE RIGHT AT APRO 4-5, THEY ARE NON-REACTIVE, PT'S EYES SEEM LIKE THEY ARE BULDGING, PERIORBITA EDEMA NOTED, PT'S SCELERA ARE BLOOD-SHOT AND RED. PT'S TEM IS 99.[address] WILKINS AT THE BEDSIDE CALLED DR. SWANN, PT WAS GIVEN 20MG IV HYDRALAZINE WHICH HAD A MINIMAL EFFECT ON THE PT'S BP. A STAT CHEST XRAY WAS ORDERED AND OBTAINED. DR. SWANN ARRIVED AT THE BEDSIDE TO ASSESS THE PT. PT'S BP CONTINUED TO INCREASE TO SBP IN THE 180'S-190'S. 40MG OF IV LABATALOL WAS ORDERED AND GIVEN THIS HELPED REDUCE THE PT'S BP TO THE 150'S SYSTOLIC. PT'S HR IMPROVED TO THE 70'S-80'S. A STAT HEAD CT WAS ORDERED THIS RN WENT WITH THE PT TO THE CT AND RETURNED WITH NO ISSUES. WILL CONTINUE TO MONITOR.
--- NOTE | 2021-05-06 10:21 | NUR ---
PT UPDATE... DURING A RESIDUAL CHECK THIS RN FOUND SMALL AMOUNT OF BRIGHT RED BLOOD, THERE WAS 160MLS OF RESIDUAL NOTED THE BLOOD WAS FOUND DURING THE LAST PULL WITH THE TUBE FEED SYRINGE. DR. SWANN AND DR. WILKINS NOTIFIED. THE TUBE FEEDS WERE STOPPED AT THIS TIME. THIS RN ALSO SPOKE WITH DR. SWANN AND DR. WILKINS ABOUT THE PT'S HYPERTENSION WITH SBPs IN THE 180'S. A NICARDIPINE GTT WAS ORDED TO KEEP THE PT'S SPB 160> AND <180. AT APROX [address]5 DR. CURRIE CALLED THIS RN AND ASKED TO SPEAK WITH DR. SWANN. AN ORDER FOR MANNITOL WAS GIVEN. WILL CONTINUE TO MONITOR.
--- NOTE | 2021-05-06 15:05 | NUR ---
PT UPDATE... PT'S HR CONTINUES TO TREND UP, THE PT IS CURRENTLY IN SINUS TACH 117-120, PT'S SBP IS BEING MAINTAINED >160 AND <180 WITH THE NICARDIPINE GTT RUNNING AT 6MG/HR. PT'S CURRENT VENT SETTINGS ARE AC/VC AT 20/350/5/40% WITH O2 SATS AT 93%. RR IS HIGH 30'S TO MID 40'S, LABORED AND UNEVEN. PT WAS GIVEN 50MCG OF IV FENTANYL AND 2MG IV ATIVAN TO SEE IF THIS HELPED THE PT'S RESPIRATORY RATE AND THEY HAD A MINIMAL EFFECT. PT'S CURRENT TEMP IS 101.1. PT'S OG TUBE IS SET TO LOW INT SUCTION AND HAS SCUTIONED 100MLS OF REDISH BROWN GASTRIC FLUID WITH A SLIGHTLY COFEE GROUND APPEARENCE. PT'S DAUGHTER AND EX AT THE BEDSIDE TO VISIT, A FULL UPDATE WAS GIVEN BY THIS RN AND KEENAN MEEKS. AKIRA Gandara PALLIATIVE CARE RN WAS CALLED TO THE BEDSIDE WELL. WILL CONTINUE TO MONITOR.
--- NOTE | 2021-05-06 17:34 | NUR ---
Called to meet with patients oldest daughter. She was asking about getting his thumb print for a memento. Pt and other duaghter came in. Spent theraputic time with . Acknowledging her stress. Kept conversation minimum she was fianlly able to express soem needs and review his life. They have suffered some in their family the past year. She is exoressed some stress over her daughter missing him. 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 Pt asked a few questions over medical care from her loved one who passed. She feared that they made a medical mistake and she could of had a chance. Pt asked about a production technologist. They are taoist and she would like a production technologist to bless him. Because of her fox it will be extrodinary for her to withdraw care. called an left message for chaplians to contact . Gave her my contact information and offered to make calls for her and asked if she needed any help with contacting employer or services. Will follow up after neurology speaks with her.
--- NOTE | 2021-05-06 18:37 | NUR ---
SHIFT SUMMARY... PT WAS STARTED ON NICARDIPINE D/T HYPERTENSION, PER DR. SWANN KEEP THE PT'S SBP >160 AND <180, THE NICARDIPINE GTT IS RUNNING AT 6MG/HR. PT'S PROPFOL HAS BEEN RUNNING AT 50MCG T/O THE SHIFT UNTIL DR. CURRIE ARRIVED AT THE BEDSIDE AND ASKED TO HAVE IT STOPPED FOR HIS NURO ASSESSMENT. PT CONTINUES TO BREATH OVER THE VENT WITH RATES IN THE 30'S-40'S. PT HAS HAD NO GAG, COUGH OR SWALLOW. PUPILS CONTINUE TO BE UNEQUAL AND NONREACTIVE. PT'S AND FAMILY AT THE BEDSIDE FOR MEETING WITH DR. CURRIE. PER THE PT'S THE PT IS TO BE A FULL CODE "NO MATTER WHAT YOU ARE TO DO EVERYTHING TO BRING HIM BACK." PT'S RAZO IS PATENT AND DRAINING TO GRAVITY. PT HAS NOT HAD A BM THIS SHIFT. WILL CONTINUE TO MONITOR UNTIL REPORT IS GIVEN TO ONCOMING RN.
--- NOTE | 2021-05-06 19:25 | NUR ---
ASSUMED CARE OF PT, BEDSIDE REPORT RECEIVED. [facility] FAMILY MEMBERS NOTED AT BEDSIDE ARE SPOUSE, LYNSEY, BROTHER VINAY, AND DAUGHTER. PT IS NOTED INTUBATED, NO SEDATION, NONRESPONSIVE AT THIS TIME. PUPILS ARE UNEQUAL AND NONRESPONSIVE, NO EYE MOVEMENT IS NOTED WITH TURNING PT'S HEAD SIDE TO SIDE. VENT SETTINGS AC/VC, 20/350, FIO2 55%, AND PEEP 5.0, CURRENT RESP RATE HIGH 30S TO LOW 40S, LUNGS COARSE THROUGHOUT WITH DIM BASES BILAT. ETT 7.0 25 CM AT TEETH, COPIOUS ORAL SECRETIONS ARE NOTED AND SUCTIONED. PT TEMP ELEVATED AT 102, ICE PACKS PLACED TO BILAT GROIN AND AXILLA, WILL MONITOR. SKIN IS FLUSHED HOT AND DRY WITH BOUNDING PULSES NOTED, BRISK CAP REFILL. NO RESPONSE IS NOTED TO NOXIOUS STIMULI. SINUS TACH NOTED WITH RATE 110S, PRESSURES HYPERTENSIVE WITH SBP 190-200S, NICARDIPINE GTT INCREASED FROM 6 MG/HR TO 8 MG/HR. GOAL IS SYSTOLIC BETWEEN 160 AND 180, WILL MONTIOR. OG IN PLACE TUBE FEEDS ON HOLD PER DAY SHIFT RN PT HAD BLOOD ASPIRATED FROM OG TUBE DURING AM RESIDUAL CHECK, WILL HOLD PT MEDS AND CLARIFY WHEN TO RESUME TUBE FEEDS. MARKEDLY HYPOACTIVE BOWEL TONES ARE NOTED, ABD DISTENDED, SOFT. TEMP PROBE RAZO IN PLACE, DRAINING CLEAR DARK YELLOW URINE TO GRAVITY.
[2021-05-07 04:20] LABS: BASOPHILS ABSOLUTE AUTO 0.04 K/mm3 (0.00-0.23); BASOPHILS PERCENT AUTO 0 % (0-2); EOSINOPHILS ABSOLUTE AUTO 0.01 K/mm3 (0.00-0.68); EOSINOPHILS PERCENT AUTO 0 % (0-6); Hematocrit 48.7 % (37.0-53.0); Hemoglobin 16.2 g/dL (13.5-17.5); IMMATURE GRAN ABSOLUTE AUTO 0.15 K/mm3 (0.00-0.10); IMMATURE GRAN PERCENT AUTO 1 % (0-1); LYMPHOCYTES ABSOLUTE AUTO 1.01 K/mm3 (0.84-5.20); LYMPHOCYTES PERCENT AUTO 8 % (21-46); MONOCYTES PERCENT AUTO 9 % (4-13); Mean Corpuscular HGB 33.7 pg (26.0-34.0); Mean Corpuscular HGB Conc 33.3 g/dL (31.5-36.5); Mean Corpuscular Volume 101 fL (80-100); Mean Platelet Volume 9.4 fL (9.1-12.4); NEUTROPHILS ABSOLUTE AUTO 11.01 K/mm3 (1.96-9.15); NEUTROPHILS PERCENT AUTO 82 % (41-73); Platelet Count 172 K/mm3 (150-400); RDW Coefficient Variation 13.2 % (11.7-14.2); Red Blood Cell Count 4.81 M/mm3 (4.30-5.90); White Blood Cell Count 13.42 K/mm3 (4.00-11.30)
[2021-05-07 04:46] LABS: Anion Gap 9 mmol/L (6-16); Blood Urea Nitrogen 18 mg/dL (8-24); Bun/Creatinine Ratio 22.7 (12.0-20.0); CO2, Blood 23 mmol/L (21-32); Calcium, Blood 8.5 mg/dL (8.5-10.1); Chloride, Blood 111 mmol/L (98-108); Creatinine, Blood 0.79 mg/dL (0.60-1.20); Glomerular Filtration Rate >60 (60-); Glucose, Blood 119 mg/dL (70-99); Magnesium, Blood 2.6 mg/dL (1.6-2.4); Phosphorus, Blood 2.9 mg/dL (2.5-4.9); Potassium, Blood 3.3 mmol/L (3.5-5.5); Sodium, Blood 143 mmol/L (136-145)
--- NOTE | 2021-05-07 06:08 | NUR ---
PT REMAINS NONRESPONSIVE THROUGHOUT SHIFT, HYPERTENSIVE WITH SBP GREATER THAN 180 FREQUENTLY EARLY IN THE SHIFT, SINGLE DOSE OF APRESOLINE AND LABETOLOL WERE GIVEN AFTER NICARDIPINE WAS TITRATED UP TO 140 ML/HR WITH LITTLE EFFECT ON PRESSURES. PROPOFOL WAS RESTARTED AT 0040 THIS AM FOR MARKED INCREASE IN RESPIRATORY DISORGANIZATION AND RATES MID TO UPPER 40S, SINCE PROPOFOL RESUMED, NICARDIPINE HAS BEEN TITRATED DOWN TO STANDBY, SBP HAS REMAINED LESS THAN 160. ELEVATED TEMP UP TO 102.9 FOR WHICH ICE PACKS WERE PLACED TO BILAT GROIN AND AXILLA, FAN ON HIGH AND THERMOSTAT IN ROOM DECREASED, TEMP HAS IMPROVED TO 99.7 OF THIS TIME. HEART RATE WAS NOTED ELEVATED TO NEAR 140 WITH INCREASE IN TEMP, IMPROVED TO 110S WITH IMPROVED TEMP. LUNGS REMAIN COARSE THROUGHTOUT WITH DIM BASES BILAT, RESP RATE WAS NOTED TO INCREASE WELL DISORGANIZED WORK OF BREATHING, AFTER PROPOFOL RESUMED, RESPIRATIONS HAVE IMPROVED TO MID 30S, SATS DECREASED THIS SHIFT AND FIO2 WAS TITRATED UP TO 100% TO OBTAIN SATS 93-94%, HAS BEEN TITRATED DOWN TO 70% WITH SATS 96% CURRENTLY. CONTINUES WITH VERY HYPOACTIVE BOWEL TONES, ABD REMAINS DISTENDED, MINIMAL OUTPUT FROM OG THIS SHIFT, HAS IMPROVED TO CLEAR GREEN IN SUCTION TUBING OF THIS TIME. URINE OUTPUT OF 1225, COLOR IS NOTED DARK YELLOW/GREEN AT THIS TIME.
--- NOTE | 2021-05-07 07:42 | NUR ---
Spiritual care call conducted. Upon receiving a message from Palliative Care RN Yana stating that a Board Turner is requested, I call the [facility] call center. I am assured that a [employer] Fin[employer] Supervisor will be contacted immediately and that the Sacrement of the Sick prayer and anointing will be performed this day. I will continue to monitor the situation to to make sure that the family's spiritual needs are being met.
--- NOTE | 2021-05-07 13:27 | NUR ---
ASSUMED CARE OF PT, REPORT RCV'D FROM CONSTANTINO BOWLES. PT INTUBATED AND SEDATED. VENT SETTINGS AC 20/350/5/60%. PROPOFOL AT 55 MCG/KG/MIN AT START OF SHIFT, PLACED ON STANDBY AT START OF SHIFT TO ASSESS NEURO FUNCTION. PT UNRESPONSIVE TO VERBAL/PAINFUL STIMULI, NO GAG/COUGH/SWALLOW, PUPILS UNEQUAL WITH ZERO RESPONSE. POSITIVE FOR DOLLS EYES. PROPOFOL RESTARTED AT 25 MCG/KG/MIN D/T INCREASED RR. OGT TO LIS AT THIS TIME WITH DARK BROWN OUTPUT. OK TO RESTART TUBE FEED PER DR. SWANN. MANNITOL INFUSING Q6H PER NOC SHIFT NURSE, ORDER TO INFUSE SCHEDULED INSTEAD OF PRN WE ARE UNABLE TO ASSESS ICP. SEE FULL SHIFT ASSESSMENT.
--- NOTE | 2021-05-07 16:59 | NUR ---
Family in to visit supportive visit advised them of priests visit. They are requesing time with a chaplian tomorrow. Father Mina has graciously offered to come in a three and pray with the family. They were more open and interactive today. They are struggling with great moral distress and grief.
--- NOTE | 2021-05-07 18:33 | NUR ---
SHIFT SUMMARY PT REMAINS INTUBATED, AC20/350/5/60%. PROPOFOL @ 25 MCG/KG/MIN. NO NEUROLOGICAL CHANGES/IMPROVEMENT THIS SHIFT. 1800 RESTARTED TUBE FEED AT GOAL RATE 20 ML/HR. 300 ML BROWN BILE OUTPUT FROM OGT PRIOR TO TUBE FEED RESTARTING. TMAX 101.8, CURRENT TEMP 101.3 ICE ICE PACKS IN AXILLA AND GROIN. PT TREATED FOR HYPERTENSION X2. PT'S FAMILY REMAINS AT BEDSIDE. SEE PREVIOUS NOTES FROM THIS SHIFT. WILL REPORT TO ONCOMING NURSE.
--- NOTE | 2021-05-07 22:05 | NUR ---
ASSUMED CARE AT 1900 PT LAYING IN BED INTUBATED WITH VENT SETTINGS AC/VC+ 20, TV 350, PEEP 5, FIO2 60%; SCANT AMOUNT OF SECREATIONS SUCTIONED; RR IRREGULAR 20-30. PT NOT REACTIVE TO VERBAL OR PAINFUL STIMULI; EYES NOT REACTIVE TO LIGHT; NO GAG OR COUGH RESPONSE; DOES NOT WITHDRAW FROM PAINFUL STIMULI; PROPOFOL INFUSING AT 25MCG/KG/MIN. HR 100-110. SBP 150-160. VHP INFUSING AT 20ML/HR (GOAL) WITH 30ML WATER FLUSHES Q4HR; MINIMAL RESIDUALS NOTED. RAZO PATENT AND DRAINING TO GRAVITY. SEE SHIFT ASSESSMENT FOR FULL ASSESSMENT. SEVERAL FAMILY MEMBERS AT BEDSIDE AND HOPEFUL FOR THE PT TO MAKE A FULL RECOVERY. SUPPORT WAS GIVEN TO THE FROM OTHER FAMILY MEMBERS SAYING THAT "I HAD A FAMILY MEMBER THAT WAS IN A COMA FOR 9 MONTHS AND RECOVERED. HE IS NOW IN HIS 90'S." AND "I ALSO HAD A FAMILY MEMBER IN A COMA THAT WAS READ TO TWICE A DAY AND CAME OUT OF THE COMA AFTER 6 DAYS." THE EXPRESSED THAT THE PT IS FIGHTING TO STAY ALIVE BECAUSE HIS HEART IS STILL BEATING.
--- NOTE | 2021-05-07 22:36 | NUR ---
PNTB PNTB CALLED AROUND 2100 FOR UPDATE ON PT CONDITION. INSTRUTIONS GIVEN TO CALL THEM IF PT CONDITION CHANGES.
--- NOTE | 2021-05-08 03:30 | NUR ---
MANNITOL 115ML OF MANNITOL INFUSED AT 0000 FROM MUNTIDOSE BAG; NEW MICRON FILTER ADDED TO LINE. SEE EMAR.
[2021-05-08 04:27] LABS: BASOPHILS ABSOLUTE AUTO 0.03 K/mm3 (0.00-0.23); BASOPHILS PERCENT AUTO 0 % (0-2); EOSINOPHILS PERCENT AUTO 2 % (0-6); Hematocrit 47.8 % (37.0-53.0); Hemoglobin 15.7 g/dL (13.5-17.5); IMMATURE GRAN ABSOLUTE AUTO 0.19 K/mm3 (0.00-0.10); IMMATURE GRAN PERCENT AUTO 2 % (0-1); LYMPHOCYTES ABSOLUTE AUTO 1.16 K/mm3 (0.84-5.20); LYMPHOCYTES PERCENT AUTO 10 % (21-46); MONOCYTES ABSOLUTE AUTO 1.02 K/mm3 (0.16-1.47); MONOCYTES PERCENT AUTO 9 % (4-13); Mean Corpuscular HGB 33.8 pg (26.0-34.0); Mean Corpuscular HGB Conc 32.8 g/dL (31.5-36.5); Mean Corpuscular Volume 103 fL (80-100); Mean Platelet Volume 9.6 fL (9.1-12.4); NEUTROPHILS ABSOLUTE AUTO 8.73 K/mm3 (1.96-9.15); NEUTROPHILS PERCENT AUTO 77 % (41-73); Platelet Count 157 K/mm3 (150-400); RDW Coefficient Variation 13.3 % (11.7-14.2); RDW Standard Deviation 51.2 fL (35.1-46.3); Red Blood Cell Count 4.64 M/mm3 (4.30-5.90); White Blood Cell Count 11.33 K/mm3 (4.00-11.30)
[2021-05-08 04:44] LABS: Anion Gap 5 mmol/L (6-16); Blood Urea Nitrogen 19 mg/dL (8-24); Bun/Creatinine Ratio 27.8 (12.0-20.0); CO2, Blood 28 mmol/L (21-32); Calcium, Blood 9.1 mg/dL (8.5-10.1); Chloride, Blood 112 mmol/L (98-108); Creatinine, Blood 0.68 mg/dL (0.60-1.20); Glomerular Filtration Rate >60 (60-); Glucose, Blood 124 mg/dL (70-99); Magnesium, Blood 2.6 mg/dL (1.6-2.4); Phosphorus, Blood 2.7 mg/dL (2.5-4.9); Potassium, Blood 3.3 mmol/L (3.5-5.5); Sodium, Blood 145 mmol/L (136-145)
--- NOTE | 2021-05-08 06:17 | NUR ---
END OF SHIFT SUMMARY NO ACUTE EVENTS OVERNIGHT. NO CHANGE IN NEURO STATUS. PT CONT TO BE UNRESPONSIVE TO VERBAL AND PAINFUL STIMULI, NO GAG OR COUGH, PUPILS NOT REACTIVE. CONT TO BE INTUBATED WITH VENT SETTINGS AC/VC+ 20, TV 350, PEEP 5, FIO2 55%; SCANT AMOUNT OF SECREATIONS. FEBRILE MAX TEMP 100.5; NOW 99.5. HR 100-115. SBP 150-170. VHP INFUSING VIA OG AT 20ML/HR (GOAL) WITH 30ML WATER FLUSHES Q4HR; SMALL AMOUNT OF RESIDUALS. RAZO PATENT AND DRAINING TO GRAVITY. PROPOFOL INFUSING AT 25ML/HR. WILL REPORT TO AM RN WHEN AVAILABLE.
--- NOTE | 2021-05-08 10:00 | NUR ---
ASSUMED CARE OF PT, REPORT RCV'D FROM CONSTANTINO HARRIS. PT UNRESPONSIVE TO VERBAL OR PAINFUL STIMULI. NO GAG/COUGH/SWALLOW, PUPILS UNEQUAL AND UNREACTIVE TO LIGHT. VENT SETTINGS 20/350/5/55%. PROPOFOL AT 25 MCG/KG/MIN AT START OF SHIFT, PROPOFOL PLACED ON STANDBY D/T DECREASED RR. NO POSTURING OR SEIZURE LIKE ACTIVITY NOTED. PLAN FOR HEAD CT AT NOON PER . CURRENT TEMP 99.7.
--- NOTE | 2021-05-08 11:17 | NUR ---
PT BECAME RAPIDLY HYPOTENSIVE REQUIRING EMERGENT START OF DOPAMINE AT 10 MCG/KG/MIN AND LEVOPHED 10 MCG/MIN TO MAINTAIN MAP>65. PT'S RR 19-20. SEDATION REMAINS ON STANDBY, NO VENTILATION CHANGE. HR DECREASED FROM 110'S TO 80'S. PALLIATIVE CARE CONTACTED TO UPDATE FAMILY.
--- NOTE | 2021-05-08 12:31 | NUR ---
PT BACK FROM CT. DOPAMINE ON STANDBY, LEVOPHED AT 10 MCG/MIN. GOAL TO MAINTAIN SBP>100.
[2021-05-08 16:35] LABS: PCO2 Arterial 53.8 mmHg (35-45); PO2 Arterial 221 mmHg (80-100); pH Blood Arterial 7.36 (7.35-7.45)
[2021-05-08 16:49] LABS: PO2 Arterial 323 mmHg (80-100); pH Blood Arterial 7.24 (7.35-7.45)
--- NOTE | 2021-05-08 18:19 | NUR ---
SHIFT SUMMARY PT REMAINS INTUBATED, VENT SETTINGS AC 20/350/5/65%. LEVOPHED @ 16 MCG/MIN TO MAINTAIN SBP>100. APNEA TEST PERFORMED BY DR. PETIT, PT FAILED. AT BEDSIDE REVIEWING APNEA RESULTS AND CT RESULTS. PNTB NOTIFIED OF RESULTS. HUMA (FAMILY COORDINATOR) FLYING OUT OF [place] AT 2100, SHE TALKED WITH FAMILY WHO WISHES TO GO FORWARD WITH DONATION. WILL REPORT TO ONCOMING NURSE.
--- NOTE | 2021-05-08 19:09 | NUR ---
comfort caret for pt family awaiting donor team.
--- NOTE | 2021-05-08 20:00 | NUR ---
ASSUMED CARE AT 1900 PT LAYING IN BED INTUABED WITH VENT SETTINGS AC/VC+ 20, TV 350, PEEP 5, FIO2 65%; INSPIRATORY AND EXPIRATORY WHEEZES NOTED. PT NOT REACTIVE TO PAINFUL STIMULI; NO GAG OR COUGH PRESENT; PUPILS NOT REACITVE. AFEBRILE. HR 80'S. SBP 100'S; MAP >65; LEVOPHED INFUSING AT 16MCG/MIN. VHP INFUSING VIA OG AT 20ML/HR (GOAL) WITH 30ML WATER FLUSHES Q4HR. RAZO IN PLACE AND DRAINING TO GRAVITY. RT IJ CENTRAL LINE DRESSING C/D/I. SEE SHIFT ASSESSMENT FOR FULL ASSESSMENT.
--- NOTE | 2021-05-09 | NUR ---
UPDATE PNTB ARRIVED AT 2100. HUMA (PNTB FAMILY COORDINATOR) CONNECTED WITH PT . PT FAMILY HAS DECIDED TO HAVE PT TRANSFERED TO [place] FOR ORGAN RETRIEVAL 05/09/21 AT AROUND 1200. FAMILY WENT HOME AFTER CONVERSATION. DELMIS (PNTB RN COORDINATOR) PROVIDING NEW ORDERS FOR MEDICATIONS (SEE EMAR), LABS, AND DISCONTINUED TF, OG NOW TO LIS.
[2021-05-09 00:39] LABS: BASOPHILS ABSOLUTE AUTO 0.06 K/mm3 (0.00-0.23); BASOPHILS PERCENT AUTO 1 % (0-2); EOSINOPHILS ABSOLUTE AUTO 0.51 K/mm3 (0.00-0.68); EOSINOPHILS PERCENT AUTO 5 % (0-6); Hematocrit 48.3 % (37.0-53.0); Hemoglobin 15.5 g/dL (13.5-17.5); IMMATURE GRAN ABSOLUTE AUTO 0.21 K/mm3 (0.00-0.10); IMMATURE GRAN PERCENT AUTO 2 % (0-1); LYMPHOCYTES ABSOLUTE AUTO 1.74 K/mm3 (0.84-5.20); LYMPHOCYTES PERCENT AUTO 16 % (21-46); MONOCYTES PERCENT AUTO 12 % (4-13); Mean Corpuscular HGB 33.6 pg (26.0-34.0); Mean Corpuscular HGB Conc 32.1 g/dL (31.5-36.5); Mean Corpuscular Volume 105 fL (80-100); Mean Platelet Volume 9.3 fL (9.1-12.4); NEUTROPHILS ABSOLUTE AUTO 7.43 K/mm3 (1.96-9.15); NEUTROPHILS PERCENT AUTO 66 % (41-73); Platelet Count 204 K/mm3 (150-400); RDW Coefficient Variation 13.2 % (11.7-14.2); RDW Standard Deviation 51.7 fL (35.1-46.3); Red Blood Cell Count 4.61 M/mm3 (4.30-5.90); White Blood Cell Count 11.25 K/mm3 (4.00-11.30)
[2021-05-09 00:58] LABS: Alanine Aminotransfer (ALT/SGP 33 U/L (12-78); Albumin, Blood 2.4 g/dL (3.4-5.0); Albumin/Globulin Ratio 0.5 (0.8-1.8); Alk Phos 92 U/L (50-136); Anion Gap 3 mmol/L (6-16); Aspartate Aminotrans (AST/SGOT 16 U/L (12-37); Bilirubin, Direct 0.2 mg/dL (0.0-0.3); Bilirubin, Indirect 0.3 mg/dL (0.1-0.7); Bilirubin, Total 0.5 mg/dL (0.1-1.0); Blood Urea Nitrogen 20 mg/dL (8-24); CO2, Blood 31 mmol/L (21-32); CPK Creatine Kinase 69 U/L (39-308); Calcium, Blood 9.1 mg/dL (8.5-10.1); Chloride, Blood 118 mmol/L (98-108); Globulin, Blood 4.6 g/dL (2.2-4.0); Glomerular Filtration Rate >60 (60-); Glucose, Blood 186 mg/dL (70-99); Magnesium, Blood 2.6 mg/dL (1.6-2.4); Phosphorus, Blood 2.6 mg/dL (2.5-4.9); Sodium, Blood 152 mmol/L (136-145)
[2021-05-09 01:03] LABS: Potassium, Blood 2.2 mmol/L (3.5-5.5)
[2021-05-09 02:20] LABS: International Normalized Ratio 0.99; Prothrombin Time Results 10.7 Sec (9.7-11.5)
--- NOTE | 2021-05-09 03:09 | NUR ---
UPDATE PT POTASSIUM LAB 2.2 AT 0020. [facility] NOTIFIED AND PROVIDED ORDERS FOR 80MEQ OF KCL TO BE INFUSED.
--- NOTE | 2021-05-09 06:21 | NUR ---
END OF SHIFT SUMMARY PT CONT TO BE INTUBATED WITH VENT SETTINGS AC/VC+ 20, TV 350, PEEP 5, FIO2 INCREASED TO 75%. NO NEURO CHANGES. AFEBRILE. HR 80-90'S. SBP 100-140; MAP >65; LEVOPHED INFUSING AT 8MCG/MIN, VASOPRESSIN INFUSING; SEE FLOW SHEET FOR TITRATION. OG TO LIS. RAZO PATENT AND DRAINING TO GRAVITY. D5 1/2NS WITH 20MEQ OF POTASSIUM INFUSING, SYNTHROID GTT INFUSING, AND KCL INFUSING. PNTB AT BEDSIDE AND AVAILABLE FOR ALL QUESTIONS. NO FAMILY MEMBERS VISITED AFTER 2100. WILL REPORT TO AM RN WHEN AVAILABLE.
[2021-05-09 06:29] LABS: Alanine Aminotransfer (ALT/SGP 30 U/L (12-78); Albumin, Blood 2.2 g/dL (3.4-5.0); Albumin/Globulin Ratio 0.5 (0.8-1.8); Alk Phos 90 U/L (50-136); Anion Gap 5 mmol/L (6-16); Aspartate Aminotrans (AST/SGOT 13 U/L (12-37); Bilirubin, Direct 0.2 mg/dL (0.0-0.3); Bilirubin, Indirect 0.1 mg/dL (0.1-0.7); Bilirubin, Total 0.3 mg/dL (0.1-1.0); Blood Urea Nitrogen 22 mg/dL (8-24); Bun/Creatinine Ratio 24.9 (12.0-20.0); CO2, Blood 29 mmol/L (21-32); CPK Creatine Kinase 123 U/L (39-308); Calcium, Blood 8.7 mg/dL (8.5-10.1); Chloride, Blood 116 mmol/L (98-108); Creatinine, Blood 0.88 mg/dL (0.60-1.20); Globulin, Blood 4.7 g/dL (2.2-4.0); Glomerular Filtration Rate >60 (60-); Glucose, Blood 272 mg/dL (70-99); Magnesium, Blood 2.5 mg/dL (1.6-2.4); Phosphorus, Blood 4.3 mg/dL (2.5-4.9); Sodium, Blood 150 mmol/L (136-145); Total Protein, Blood 6.9 g/dL (6.4-8.2)
[2021-05-09 07:32] LABS: International Normalized Ratio 0.96; Prothrombin Time Results 10.4 Sec (9.7-11.5)
--- NOTE | 2021-05-09 07:32 | NUR ---
ASSUMED CARE OF PT, REPORT RCV'D FROM CONSTANTINO HARRIS. VENT SETTINGS AC/VC+ 20/350/5/75%. LEVOPHED @8 MCG/MIN, VASOPRESSIN @ 0.04 UNITS/MIN, D5 1/2NS W/KCL @ 75 ML/HR, LEVOTHYROXINE @ 25 ML/HR. PT REMAINS UNRESPONSIVE. PNTB ASSUMING CARE OF PT WITH PLAN TO TRANSFER TO [place] FOR ORGAN PROCUREMENT THIS AFTERNOON.
[2021-05-09 12:24] LABS: BASOPHILS ABSOLUTE AUTO 0.02 K/mm3 (0.00-0.23); BASOPHILS PERCENT AUTO 0 % (0-2); EOSINOPHILS PERCENT AUTO 0 % (0-6); Hematocrit 43.3 % (37.0-53.0); Hemoglobin 13.8 g/dL (13.5-17.5); IMMATURE GRAN ABSOLUTE AUTO 0.12 K/mm3 (0.00-0.10); IMMATURE GRAN PERCENT AUTO 1 % (0-1); LYMPHOCYTES ABSOLUTE AUTO 0.64 K/mm3 (0.84-5.20); LYMPHOCYTES PERCENT AUTO 7 % (21-46); MONOCYTES ABSOLUTE AUTO 0.74 K/mm3 (0.16-1.47); MONOCYTES PERCENT AUTO 8 % (4-13); Mean Corpuscular HGB 33.6 pg (26.0-34.0); Mean Corpuscular HGB Conc 31.9 g/dL (31.5-36.5); Mean Corpuscular Volume 105 fL (80-100); Mean Platelet Volume 9.7 fL (9.1-12.4); NEUTROPHILS ABSOLUTE AUTO 7.77 K/mm3 (1.96-9.15); NEUTROPHILS PERCENT AUTO 84 % (41-73); Platelet Count 194 K/mm3 (150-400); RDW Coefficient Variation 13.2 % (11.7-14.2); RDW Standard Deviation 52.3 fL (35.1-46.3); Red Blood Cell Count 4.11 M/mm3 (4.30-5.90); White Blood Cell Count 9.29 K/mm3 (4.00-11.30)
[2021-05-09 12:42] LABS: Alanine Aminotransfer (ALT/SGP 28 U/L (12-78); Albumin, Blood 2.1 g/dL (3.4-5.0); Albumin/Globulin Ratio 0.5 (0.8-1.8); Alk Phos 86 U/L (50-136); Anion Gap 1 mmol/L (6-16); Aspartate Aminotrans (AST/SGOT 12 U/L (12-37); Bilirubin, Direct 0.1 mg/dL (0.0-0.3); Bilirubin, Indirect 0.1 mg/dL (0.1-0.7); Bilirubin, Total 0.2 mg/dL (0.1-1.0); Blood Urea Nitrogen 23 mg/dL (8-24); Bun/Creatinine Ratio 27.1 (12.0-20.0); CO2, Blood 31 mmol/L (21-32); CPK Creatine Kinase 118 U/L (39-308); Calcium, Blood 8.6 mg/dL (8.5-10.1); Chloride, Blood 117 mmol/L (98-108); Creatinine, Blood 0.85 mg/dL (0.60-1.20); Globulin, Blood 4.5 g/dL (2.2-4.0); Glomerular Filtration Rate >60 (60-); Glucose, Blood 227 mg/dL (70-99); International Normalized Ratio 0.97; Magnesium, Blood 2.7 mg/dL (1.6-2.4); Phosphorus, Blood 3.4 mg/dL (2.5-4.9); Potassium, Blood 5.1 mmol/L (3.5-5.5); Prothrombin Time Results 10.5 Sec (9.7-11.5); Sodium, Blood 149 mmol/L (136-145); Total Protein, Blood 6.6 g/dL (6.4-8.2)
[2021-05-09 13:20] LABS: SARS-Cov-2 (COVID-19) PCR, MMC NEGATIVE (NEGATIVE)
[2021-05-09 15:29] LABS: PCO2 Arterial 54.8 mmHg (35-45); PO2 Arterial 91.2 mmHg (80-100); pH Blood Arterial 7.35 (7.35-7.45)
[2021-05-09 16:49] LABS: PCO2 Arterial 52.2 mmHg (35-45); PO2 Arterial 73.8 mmHg (80-100); pH Blood Arterial 7.37 (7.35-7.45)
--- NOTE | 2021-05-09 18:45 | NUR ---
[facility] TRANSPORT TO BEDSIDE. PT TRANSPORTED VIA GURNEY WITH THIS NURSE, PNTB, [facility] TRANSPORT TEAM AND FAMILY TO AWAITING AMBULANCE. PT DEPARTED [facility] AT APPROXIMATELY 1830.
== END 2021-05-09 18:21 | disposition short-term general hospital (02) | DRG 296 ==
LOC: ER 04:49 → ICUW 06:03 → ICUE 06:03
PROVIDERS: Emergency Medicine; Internal Medicine Critical Care Medicine; Internal Medicine Pulmonary Disease; ADMIT Internal Medicine
PROC: 4A10X4Z Monitoring of Central Nervous Electrical Activity, External Approach (ICD-10-PCS; principal; 2021-05-02)
PROC: 5A12012 Performance of Cardiac Output, Single, Manual (ICD-10-PCS; 2021-05-02)
PROC: 5A12012 Performance of Cardiac Output, Single, Manual (ICD-10-PCS; 2021-05-02)
PROC: 5A1955Z Respiratory Ventilation, Greater than 96 Consecutive Hours (ICD-10-PCS; 2021-05-02)
PROC: 0BH18EZ Insertion of Endotracheal Airway into Trachea, Via Natural or Artificial Opening Endoscopic (ICD-10-PCS; 2021-05-02)
PROC: 02HV33Z Insertion of Infusion Device into Superior Vena Cava, Percutaneous Approach (ICD-10-PCS; 2021-05-02)
DX: I46.9 Cardiac arrest, cause unspecified (principal); R09.2 Respiratory arrest; J96.02 Acute respiratory failure with hypercapnia; J44.1 Chronic obstructive pulmonary disease with (acute) exacerbation; G93.1 Anoxic brain damage, not elsewhere classified; E87.4 Mixed disorder of acid-base balance; J45.901 Unspecified asthma with (acute) exacerbation; J95.851 Ventilator associated pneumonia; K92.2 Gastrointestinal hemorrhage, unspecified; Z66 Do not resuscitate; Z51.5 Encounter for palliative care; B96.1 Klebsiella pneumoniae [K. pneumoniae] as the cause of diseases classified elsewhere; K21.9 Gastro-esophageal reflux disease without esophagitis; Z20.822 Contact with and (suspected) exposure to COVID-19; F41.9 Anxiety disorder, unspecified; F17.210 Nicotine dependence, cigarettes, uncomplicated; M54.5 Low back pain; G89.29 Other chronic pain; E66.9 Obesity, unspecified; Z68.35 Body mass index [BMI] 35.0-35.9, adult; Z90.49 Acquired absence of other specified parts of digestive tract; Z98.890 Other specified postprocedural states
CPT/HCPCS: 36415; 36556; 36600; 51702; 70450; 71045; 71260; 72125; 74177; 80047; 80048; 80053; 81001; 82248; 82550; 82803; 82947; 83036; 83605; 83735; 83880; 84100; 84484; 85014; 85025; 85610; 85730; 86316; 86850; 86900; 86901; 87040; 87070; 87077; 87086; 87186; 87205; 93005; 93010; 93306; 94002; 94003; 94640; 94644; 95819; 96374-59; 96375-59; 96376-59; 99291-25; A9270; C1751; C9113; G0480; J0360; J0696; J1165; J1265; J1650; J1953; J2060; J2150; J2250; J2543; J2704; J2920; J2930; J3010; J3370; J3480; J7030; J7040; J7050; J7060; J7120; Q9967; U0004